=== PATIENT | male | born 1980 | race Hispanic/Latino ===

== ENCOUNTER 2019-09-17 00:23 | Inpatient (IN) | payer OTHER ==
[~2019-09-17] VITALS: Ht 172.7 cm; Wt 97.8 kg
[2019-09-17 01:18] LABS: BASOPHILS % (AUTO) 0.1 % (0.0-5.0); EOSINOPHILS % (AUTO) 1.7 % (0.0-8.0); LYMPHOCYTES % (AUTO) 12.3 % (21.0-51.0); MEAN CORPUSCULAR HEMOGLOBIN 29.2 pg (27.0-33.0); MEAN CORPUSCULAR HGB CONC 34.8 g/dL (32.0-36.0); MONOCYTES % (AUTO) 6.9 % (3.0-13.0); NEUTROPHILS % (AUTO) 78.6 % (40.0-77.0); PLATELET COUNT (AUTO) 209 K/uL (130-400); RED BLOOD CELL COUNT(AUTO) 5.24 MIL/uL (4.50-6.20); RED CELL DISTRIBUTION WIDTH 12.4 % (11.0-15.5); WHITE BLOOD COUNT (AUTO) 7.1 K/uL (4.8-10.8)
[2019-09-17 01:22] LABS: INR 0.9 (0.85-1.15); PARTIAL THROMBOPLASTIN TIME 32.4 SEC (26.3-35.5); PROTHROMBIN TIME 9.8 SEC (9.6-11.6)
[2019-09-17 01:27] LABS: CREATININE 0.9 mg/dL (0.5-1.5); POTASSIUM 3.6 mmol/L (3.5-5.1)
[2019-09-17 01:32] LABS: ALBUMIN 2.9 g/dL (3.5-5.0); BILIRUBIN,TOTAL 0.6 mg/dL (0.2-1.0); TOTAL PROTEIN, SERUM 7.2 g/dL (6.0-8.3)
[2019-09-17 01:39] LABS: B-TYPE NATRIURETIC PEPTIDE 6 pg/mL (0-100)
[2019-09-17] MEDS ORDERED: SODIUM CHLORIDE 0.9% 1000ML 1,000 ML, SODIUM CHLORIDE 0.9% 1000ML 1,000 ML IV SCH (02:18)
[2019-09-17] MEDS ORDERED: MAG HYDROX/AL HYDROX/SIMETH 30 ML, LIDOCAINE HCL 2% VISCOUS 30 ML, DIPHENHYDRAMINE HCL ... PO PRN ×3 (02:30)
[2019-09-17] MEDS ORDERED: MAG HYDROX/AL HYDROX/SIMETH ES 30 ML SUSP UDCUP PO PRN (02:30)
[2019-09-17] MEDS ORDERED: LACTULOSE 20 GM/30 ML UDCUP PO PRN (02:30)
[2019-09-17] MEDS ORDERED: NITROGLYCERIN 0.4 MG SL TAB SL PRN (02:30)
[2019-09-17] MEDS ORDERED: LIDOCAINE HCL 2% VISCOUS 30 ML, MAG HYDROX/AL HYDROX/SIMETH 30 ML, BELLADONNA-PHENOBARB... PO PRN ×3 (02:30)
[2019-09-17] MEDS ORDERED: DiphenhydrAMINE HCL 50 MG/ML VIAL IV PRN (02:30)
[2019-09-17] MEDS ORDERED: ONDANSETRON HCL 4 MG/2 ML VIAL IV PRN (02:30)
[2019-09-17] MEDS ORDERED: ACETAMINOPHEN 325 MG TAB PO PRN (02:30)
[2019-09-17] MEDS ORDERED: ZOLPIDEM TARTRATE 5 MG TAB ONE (02:43)
[2019-09-17] MEDS ORDERED: BENZONATATE 100 MG CAPSULE PO ONE (02:43)
[2019-09-17] MEDS ORDERED: PHARMACY COMMUNICATION**REMDESIVIR ORDER MISC SCH (02:45)
[2019-09-17] MEDS ORDERED: IOHEXOL-350 75 ML VIAL IV ONE (03:14)
[2019-09-17] MEDS ORDERED: GLUCAGON 1MG KIT 1 MG ML IM PRN (03:15)
[2019-09-17] MEDS ORDERED: DEXTROSE 50%-WATER 50 ML DISP.SYRIN IV PRN (03:15)
[2019-09-17 03:33] LABS: HEMOGLOBIN A1C 7.8 % (4.0-6.0)
[2019-09-17 03:43] LABS: CREATINE KINASE, TOTAL 111 U/L (21-232); MYOGLOBIN 40 ng/mL (10-92); TROPONIN I < 0.04 ng/mL (0.00-0.06)
[2019-09-17 04:10] VITALS: BP 142/83
[2019-09-17] MEDS ORDERED: METF-446 PO (05:55)
[2019-09-17] MEDS ORDERED: LISI1TAB51 PO (05:55)
[2019-09-17] MEDS ORDERED: GLIP5POW MC (05:55)
[2019-09-17] MEDS: AZITHROMYCIN 500MG+NS 250ML 250 ML IV SCH (06:45)
[2019-09-17] MEDS: CEFTRIAXONE SODIUM 1 GM IVP SCH ×2 (06:55→09:39)
[2019-09-17] MEDS: INSULIN LISPRO 100 UNIT/ML 3ML SQ SCH ×4 (07:30→20:19)
[2019-09-17 09:13] VITALS: BP 130/82
[2019-09-17] MEDS ORDERED: SODIUM CHLORIDE 0.9% 1000ML 1,000 ML IV ONE (09:20)
[2019-09-17] MEDS: FAMOTIDINE/PF 20 MG/2 ML VIAL IV SCH ×2 (09:35→20:19)
[2019-09-17] MEDS: ENOXAPARIN SODIUM 40 MG/0.4 ML SYRINGE SQ SCH (09:36)
[2019-09-17] MEDS: DEXAMETHASONE 10MG/ML 1ML VIAL 6 MG in SODIUM CHLORIDE 0.9% 50 ML IV SCH (09:38)
[2019-09-17] MEDS ORDERED: SODIUM CHLORIDE 0.9% 250 ML IV ONE (10:27)
[2019-09-17 11:39] LABS: CREATINE KINASE, TOTAL 129 U/L (21-232); MYOGLOBIN 52 ng/mL (10-92); TROPONIN I < 0.04 ng/mL (0.00-0.06)
[2019-09-17 12:50] VITALS: BP 133/83
--- NOTE | 2019-09-17 13:49 | NUR ---
DC PLAN VISITED WITH PATIENT. SPOKE THROUGH PHONE. PATIENT LIVES WITH SPOUSE. INDEPENDENT ABLE TO PERFORM ADL'S. PATIENT HAS NO SERVICES OR DME'S. FEELS SAFE TO RETURN HOME. PATIENT VERBAL ALDEN GIVEN IN CASE HE NEEDS O2. NURSE COSIGNED FORM. Addendum: 09/17/19 at 1351 by YAHAIRA ALANIS RN CM Amended: Links added.
[2019-09-17 15:51] VITALS: BP 128/81
[2019-09-17 18:31] LABS: CREATINE KINASE, TOTAL 132 U/L (21-232); MYOGLOBIN 43 ng/mL (10-92); TROPONIN I < 0.04 ng/mL (0.00-0.06)
[2019-09-17] MEDS: PHARMACY COMMUNICATION**REMDESIVIR ORDER MISC SCH ×2 (19:00→19:15)
[2019-09-17 20:24] VITALS: BP 133/82
--- NOTE | 2019-09-17 20:30 | NUR ---
PT EDUCATION ENCOURAGED PATIENT TO PRONE AND LAY SIDE TO SIDE. PATIENT STATES HE ATTEMPTED PRONE AND UNABLE TO TOLERATE. ENCOURAGED PATIENT TO CONTINUE TO ATTEMPT TO PRONE. OFFERED PRN COUGH MEDICATION.
[2019-09-17] MEDS: BENZONATATE 100 MG CAPSULE PO PRN (20:31)
[2019-09-17] MEDS: PHENOL 177 ML BOTTLE PO PRN (23:49)
[2019-09-18 00:15] VITALS: BP 127/79
[2019-09-18] MEDS: PHARMACY COMMUNICATION**REMDESIVIR ORDER MISC SCH ×3 (02:32→18:17)
[2019-09-18 04:04] VITALS: BP 121/83
[2019-09-18] MEDS: AZITHROMYCIN 500MG+NS 250ML 250 ML IV SCH (04:16)
[2019-09-18] MEDS: GUAIFENESIN-CODEINE 5 ML SYRUP PO PRN ×3 (05:28→16:40)
[2019-09-18] MEDS: INSULIN LISPRO 100 UNIT/ML 3ML SQ SCH ×4 (05:34→21:42)
[2019-09-18 05:57] LABS: BASOPHILS % (AUTO) 0.1 % (0.0-5.0); HEMATOCRIT 39.1 % (42-54); LYMPHOCYTES % (AUTO) 7.2 % (21.0-51.0); MEAN CORPUSCULAR HEMOGLOBIN 29.1 pg (27.0-33.0); MEAN CORPUSCULAR HGB CONC 34.3 g/dL (32.0-36.0); MONOCYTES % (AUTO) 6.4 % (3.0-13.0); NEUTROPHILS % (AUTO) 85.8 % (40.0-77.0); PLATELET COUNT (AUTO) 241 K/uL (130-400); RED CELL DISTRIBUTION WIDTH 12.3 % (11.0-15.5); WHITE BLOOD COUNT (AUTO) 10.4 K/uL (4.8-10.8)
[2019-09-18] MEDS: DEXAMETHASONE 10MG/ML 1ML VIAL 6 MG in SODIUM CHLORIDE 0.9% 50 ML IV SCH (06:12)
[2019-09-18 06:41] LABS: ALBUMIN 2.5 g/dL (3.5-5.0); BILIRUBIN,TOTAL 0.8 mg/dL (0.2-1.0); CREATININE 0.9 mg/dL (0.5-1.5); CRP QUANTITATIVE 160.6 mg/L (0.00-9.0); MAGNESIUM 1.7 mg/dL (1.80-2.40); PHOSPHORUS 3.5 mg/dL (2.5-4.9); POTASSIUM 3.6 mmol/L (3.5-5.1); TOTAL PROTEIN, SERUM 6.4 g/dL (6.0-8.3)
[2019-09-18] MEDS ORDERED: MAGNESIUM 2GM PREMIX 50ML 50 ML IV SCH (07:00)
[2019-09-18] MEDS: CEFTRIAXONE SODIUM 1 GM IVP SCH (08:51)
[2019-09-18] MEDS: FAMOTIDINE 20MG TAB 20 MG TAB PO SCH ×2 (08:51→20:22)
[2019-09-18] MEDS: ENOXAPARIN SODIUM 40 MG/0.4 ML SYRINGE SQ SCH (08:51)
[2019-09-18 08:56] VITALS: BP 132/83
[2019-09-18] MEDS ORDERED: PHARMACY COMMUNICATION**REMDESIVIR ORDER MISC SCH (11:15)
[2019-09-18] MEDS ORDERED: DEXAMETHASONE 4 MG TAB PO SCH (11:30)
[2019-09-18 12:44] VITALS: BP 118/79
[2019-09-18 15:53] VITALS: BP 120/73
[2019-09-18 20:00] VITALS: BP 132/84
[2019-09-18] MEDS: ZOLPIDEM TARTRATE 5 MG TAB PO PRN (20:22)
[2019-09-18] MEDS: BENZONATATE 100 MG CAPSULE PO PRN (20:22)
[2019-09-18] MEDS: PHENOL 177 ML BOTTLE PO PRN (20:22)
[2019-09-18] MEDS: ACETAMINOPHEN 325 MG TAB PO PRN ×2 (20:22→21:42)
--- NOTE | 2019-09-18 23:54 | NUR ---
PT STATUS PT FOUND WITH NC OFF AND DESATURATING. PATIENT PLACED ON VENTI MASK AT 40%; OXYGEN SATURATION 90%. WILL CONTINUE TO MONITOR.
[2019-09-19] VITALS: BP 129/85
[2019-09-19] MEDS: PHARMACY COMMUNICATION**REMDESIVIR ORDER MISC SCH ×3 (02:37→19:10)
[2019-09-19] MEDS: AZITHROMYCIN 500MG+NS 250ML 250 ML IV SCH (02:37)
[2019-09-19 03:55] LABS: BASOPHILS % (AUTO) 0.3 % (0.0-5.0); HEMATOCRIT 40.5 % (42-54); MEAN CORPUSCULAR HEMOGLOBIN 28.4 pg (27.0-33.0); MEAN CORPUSCULAR HGB CONC 33.3 g/dL (32.0-36.0); MEAN CORPUSCULAR VOLUME 85.3 fL (79-99); MONOCYTES % (AUTO) 6.4 % (3.0-13.0); NEUTROPHILS % (AUTO) 82.4 % (40.0-77.0); PLATELET COUNT (AUTO) 275 K/uL (130-400); RED BLOOD CELL COUNT(AUTO) 4.75 MIL/uL (4.50-6.20); RED CELL DISTRIBUTION WIDTH 12.2 % (11.0-15.5); WHITE BLOOD COUNT (AUTO) 10.8 K/uL (4.8-10.8)
[2019-09-19 04:00] VITALS: BP 137/90
[2019-09-19 04:13] LABS: ALBUMIN 2.4 g/dL (3.5-5.0); BILIRUBIN,TOTAL 1.3 mg/dL (0.2-1.0); CREATININE 0.9 mg/dL (0.5-1.5); CRP QUANTITATIVE 153.4 mg/L (0.00-9.0); POTASSIUM 3.7 mmol/L (3.5-5.1); TOTAL PROTEIN, SERUM 6.6 g/dL (6.0-8.3)
[2019-09-19] MEDS: ACETAMINOPHEN 325 MG TAB PO PRN (04:35)
[2019-09-19] MEDS: INSULIN LISPRO 100 UNIT/ML 3ML SQ SCH ×4 (05:45→21:26)
--- NOTE | 2019-09-19 08:00 | NUR ---
ASSESSMENT ENCOUNTERED PT A&OX3, SITTING ON SIDE OF BED, APPEARS TACHYPNEIC, O2SATS 85% ON VENTI MASK, PLACED ON 100%NRB WITH 12LNC, O2 SATS 100%, PT IS ABLE TO TOLERATE FOODS, FLUIDS AND MEDICATION WITH NO THROAT CLEARING OR COUGH, INFORMED PT TO REMAIN AT BEDREST AND THE BENEFITS OF PRONE POSITIONING, PT AND ON PHONE BOTH UNDERSTOOD AND PROCEEDED TO PRONE POSITION, APPEARS COMFORTABLE, SPEAKING TO ON CELL PHONE.
[2019-09-19] MEDS: DEXAMETHASONE 4 MG TAB PO SCH (08:44)
[2019-09-19] MEDS: CEFTRIAXONE SODIUM 1 GM IVP SCH (08:44)
[2019-09-19] MEDS: FAMOTIDINE 20MG TAB 20 MG TAB PO SCH ×2 (08:44→21:26)
[2019-09-19] MEDS: GUAIFENESIN-CODEINE 5 ML SYRUP PO PRN ×3 (08:44→22:47)
[2019-09-19] MEDS: BENZONATATE 100 MG CAPSULE PO PRN ×2 (08:44→17:13)
[2019-09-19] MEDS: ENOXAPARIN SODIUM 40 MG/0.4 ML SYRINGE SQ SCH (08:50)
[2019-09-19 09:47] VITALS: BP 138/86
--- NOTE | 2019-09-19 11:00 | NUR ---
DECREASED TO 6LNC WITH 100% NRB, PT STATES THAT HE FEELS ALOT BETTER DURING AND AFTER PRONING, ENCOURAGED HIM TO PRONE BETWEEN MEALS AND MAJORITY OF PRONING AT HS.
[2019-09-19 11:06] LABS: ABG BASE EXCESS 2.6 mmol/L (-2.0-3.0); ABG HCO3 26.2 mmol/L (21.0-28.0); ABG OXYGEN SATURATION 99.7 % (95.0-99.0); ABG PCO2 37 mmHg (35-48)
[2019-09-19 12:45] VITALS: BP 143/93
[2019-09-19] MEDS: PHARMACY COMMUNICATION MISC SCH ×3 (14:00→22:00)
[2019-09-19 16:00] VITALS: BP 157/89
[2019-09-19 20:00] VITALS: BP 136/85
--- NOTE | 2019-09-19 20:59 | NUR ---
[facility] RECEIVED CALL FROM LAB MELISSA STATING [facility] READY FOR TRANSFUSION AND THEY NEED COPY OF PT REGISTRATION WITH [facility] PER MELISSA "AUDRA" TOLD HIM IT WAS OK TO THAW PLASMA. RECEIVED REPORT FROM DAY SHIFT NURSE THAT PT WAS PENDING REGISTRATION FOR PLASMA. HARD CHART CHECKED NO HARD COPY OF REGISTRATION LOCATED. PLASMA WILL BE ON HOLD UNTIL ADMINISTRATION IS HERE IN THE MORNING AND ABLE TO PRINT OUT HARD COPY OF REGISTRATION FOR LAB REQUIREMENTS. Addendum: 09/20/19 at 0416 by ADITYA LIRA RN RN DISREGARD PREVIOUS NOTE, NO HARD COPY REQUIRED, PROVIDED AUTHORIZATION NUMBER FROM [facility] STUDY AND PT RECEIVED ONE UNIT [facility] WITHOUT INCIDENT.
[2019-09-19] MEDS: ZOLPIDEM TARTRATE 5 MG TAB PO PRN (21:26)
[2019-09-20] VITALS (7 sets, daily range): BP systolic 115–141; BP diastolic 70–100
[2019-09-20] MEDS ORDERED: SODIUM CHLORIDE 0.9% 250 ML IV ONE (01:00)
[2019-09-20] MEDS: PHARMACY COMMUNICATION MISC SCH ×6 (01:15→20:47)
[2019-09-20] MEDS: PHARMACY COMMUNICATION**REMDESIVIR ORDER MISC SCH ×3 (03:15→19:15)
[2019-09-20 04:37] LABS: ABG BASE EXCESS 0.5 mmol/L (-2.0-3.0); ABG HCO3 25.2 mmol/L (21.0-28.0); ABG OXYGEN SATURATION 99.7 % (95.0-99.0); ABG PCO2 41 mmHg (35-48)
[2019-09-20 04:44] LABS: BASOPHILS % (AUTO) 0.5 % (0.0-5.0); EOSINOPHILS % (AUTO) 0.1 % (0.0-8.0); HEMATOCRIT 39.6 % (42-54); LYMPHOCYTES % (AUTO) 10.6 % (21.0-51.0); MEAN CORPUSCULAR HEMOGLOBIN 28.8 pg (27.0-33.0); MEAN CORPUSCULAR HGB CONC 33.8 g/dL (32.0-36.0); MEAN CORPUSCULAR VOLUME 85.2 fL (79-99); MONOCYTES % (AUTO) 6.3 % (3.0-13.0); NEUTROPHILS % (AUTO) 77.7 % (40.0-77.0); PLATELET COUNT (AUTO) 328 K/uL (130-400); RED BLOOD CELL COUNT(AUTO) 4.65 MIL/uL (4.50-6.20); RED CELL DISTRIBUTION WIDTH 11.9 % (11.0-15.5); WHITE BLOOD COUNT (AUTO) 8.8 K/uL (4.8-10.8)
[2019-09-20 05:16] LABS: ALBUMIN 2.4 g/dL (3.5-5.0); BILIRUBIN,TOTAL 1.4 mg/dL (0.2-1.0); CREATININE 0.9 mg/dL (0.5-1.5); POTASSIUM 4.3 mmol/L (3.5-5.1); TOTAL PROTEIN, SERUM 6.6 g/dL (6.0-8.3)
[2019-09-20] MEDS: GUAIFENESIN-DM 200/20 MG 10 ML PO PRN (06:08)
[2019-09-20] MEDS: INSULIN LISPRO 100 UNIT/ML 3ML SQ SCH ×6 (06:11→20:58)
[2019-09-20] MEDS: DEXAMETHASONE 4 MG TAB PO SCH (09:39)
[2019-09-20] MEDS: CEFTRIAXONE SODIUM 1 GM IVP SCH (09:39)
[2019-09-20] MEDS: FAMOTIDINE 20MG TAB 20 MG TAB PO SCH ×2 (09:39→20:55)
[2019-09-20] MEDS: ENOXAPARIN SODIUM 40 MG/0.4 ML SYRINGE SQ SCH ×3 (09:41→20:55)
[2019-09-20] MEDS: GUAIFENESIN-CODEINE 5 ML SYRUP PO PRN ×3 (09:50→21:04)
[2019-09-20] MEDS: ACETAMINOPHEN 325 MG TAB PO PRN (09:51)
[2019-09-20] MEDS: METHYLPREDNISOLONE SOD SUCC 40MG/ML 1ML IVP SCH ×2 (12:58→17:23)
[2019-09-20] MEDS: INSULIN GLARGINE 100 UNITS/ML 10 ML VIAL SQ SCH (20:59)
[2019-09-20] MEDS: ZOLPIDEM TARTRATE 5 MG TAB PO PRN (21:04)
[2019-09-21] MEDS: PHARMACY COMMUNICATION MISC SCH ×6 (02:00→21:02)
[2019-09-21] MEDS: PHARMACY COMMUNICATION**REMDESIVIR ORDER MISC SCH ×3 (02:09→16:30)
[2019-09-21] MEDS: METHYLPREDNISOLONE SOD SUCC 40MG/ML 1ML IVP SCH ×3 (02:09→16:29)
[2019-09-21 03:00] VITALS: BP 136/85
[2019-09-21 03:19] LABS: ABG BASE EXCESS 1.2 mmol/L (-2.0-3.0); ABG HCO3 25.2 mmol/L (21.0-28.0); ABG OXYGEN SATURATION 90.8 % (95.0-99.0); ABG PCO2 38 mmHg (35-48)
[2019-09-21 04:11] LABS: BASOPHILS % (AUTO) 0.5 % (0.0-5.0); HEMATOCRIT 42.3 % (42-54); LYMPHOCYTES % (AUTO) 8.1 % (21.0-51.0); MEAN CORPUSCULAR HEMOGLOBIN 28.7 pg (27.0-33.0); MEAN CORPUSCULAR VOLUME 84.3 fL (79-99); MONOCYTES % (AUTO) 4.7 % (3.0-13.0); NEUTROPHILS % (AUTO) 80.2 % (40.0-77.0); PLATELET COUNT (AUTO) 389 K/uL (130-400); RED BLOOD CELL COUNT(AUTO) 5.02 MIL/uL (4.50-6.20); RED CELL DISTRIBUTION WIDTH 11.8 % (11.0-15.5); WHITE BLOOD COUNT (AUTO) 8.6 K/uL (4.8-10.8)
[2019-09-21 04:28] LABS: ALBUMIN 2.4 g/dL (3.5-5.0); BILIRUBIN,TOTAL 0.9 mg/dL (0.2-1.0); CREATININE 0.8 mg/dL (0.5-1.5); PHOSPHORUS 4.6 mg/dL (2.5-4.9); POTASSIUM 4.3 mmol/L (3.5-5.1); TOTAL PROTEIN, SERUM 6.7 g/dL (6.0-8.3)
[2019-09-21] MEDS: INSULIN LISPRO 100 UNIT/ML 3ML SQ SCH ×7 (07:23→21:07)
[2019-09-21] MEDS: GUAIFENESIN-DM 200/20 MG 10 ML PO PRN ×2 (07:31→21:00)
[2019-09-21 08:00] VITALS: BP 129/82
[2019-09-21] MEDS: FAMOTIDINE 20MG TAB 20 MG TAB PO SCH ×2 (09:04→21:00)
[2019-09-21] MEDS: ENOXAPARIN SODIUM 40 MG/0.4 ML SYRINGE SQ SCH ×2 (09:05→21:01)
[2019-09-21] MEDS: GUAIFENESIN-CODEINE 5 ML SYRUP PO PRN (09:06)
[2019-09-21 12:08] VITALS: BP 121/92
[2019-09-21 16:00] VITALS: BP 137/65
[2019-09-21] MEDS ORDERED: COMPOUND IV REFRIGERATED 1 EACH IVSOLN MISC PRN (20:00)
[2019-09-21] MEDS ORDERED: REMDESIVIR (EUA) 520 200 MG in SODIUM CHLORIDE 0.9% 250 ML IV ONE (20:00)
[2019-09-21 20:43] VITALS: BP 122/74
[2019-09-21] MEDS ORDERED: SODIUM CHLORIDE 0.9% 500ML 500 ML IV ONE (20:49)
[2019-09-21] MEDS: ZOLPIDEM TARTRATE 5 MG TAB PO PRN (21:00)
[2019-09-21] MEDS: INSULIN GLARGINE 100 UNITS/ML 10 ML VIAL SQ SCH (21:08)
[2019-09-22] VITALS (7 sets, daily range): BP systolic 114–142; BP diastolic 73–94
--- NOTE | 2019-09-22 | NUR ---
pt completed Remdesevir administration; no issues or complaints at this time; vitals remained stable an WNL. JESS Rosado
[2019-09-22] MEDS: PHARMACY COMMUNICATION MISC SCH ×6 (02:00→17:19)
[2019-09-22] MEDS: METHYLPREDNISOLONE SOD SUCC 40MG/ML 1ML IVP SCH ×3 (02:43→16:22)
[2019-09-22] MEDS: PHARMACY COMMUNICATION**REMDESIVIR ORDER MISC SCH ×3 (02:44→17:19)
[2019-09-22] MEDS: GUAIFENESIN-DM 200/20 MG 10 ML PO PRN (04:01)
[2019-09-22] MEDS: ACETAMINOPHEN 325 MG TAB PO PRN (04:05)
[2019-09-22 04:43] LABS: BASOPHILS % (AUTO) 0.7 % (0.0-5.0); EOSINOPHILS % (AUTO) 0.2 % (0.0-8.0); HEMATOCRIT 41.9 % (42-54); MEAN CORPUSCULAR HEMOGLOBIN 29.2 pg (27.0-33.0); MEAN CORPUSCULAR HGB CONC 34.6 g/dL (32.0-36.0); MEAN CORPUSCULAR VOLUME 84.5 fL (79-99); MONOCYTES % (AUTO) 6.1 % (3.0-13.0); NEUTROPHILS % (AUTO) 82.2 % (40.0-77.0); PLATELET COUNT (AUTO) 372 K/uL (130-400); RED BLOOD CELL COUNT(AUTO) 4.96 MIL/uL (4.50-6.20); RED CELL DISTRIBUTION WIDTH 11.8 % (11.0-15.5); WHITE BLOOD COUNT (AUTO) 13.7 K/uL (4.8-10.8)
[2019-09-22 05:01] LABS: CREATININE 0.9 mg/dL (0.5-1.5); CRP QUANTITATIVE 15.7 mg/L (0.00-9.0); POTASSIUM 3.9 mmol/L (3.5-5.1)
[2019-09-22] MEDS: INSULIN LISPRO 100 UNIT/ML 3ML SQ SCH ×7 (06:34→20:56)
[2019-09-22] MEDS: FAMOTIDINE 20MG TAB 20 MG TAB PO SCH ×2 (09:40→20:51)
[2019-09-22] MEDS: ENOXAPARIN SODIUM 40 MG/0.4 ML SYRINGE SQ SCH ×2 (09:40→20:51)
[2019-09-22] MEDS: GUAIFENESIN-CODEINE 5 ML SYRUP PO PRN (18:12)
[2019-09-22] MEDS: REMDESIVIR (EUA) 520 100 MG in SODIUM CHLORIDE 0.9% 250 ML IV SCH (20:51)
[2019-09-22] MEDS: INSULIN GLARGINE 100 UNITS/ML 10 ML VIAL SQ SCH (21:02)
[2019-09-23] MEDS: METHYLPREDNISOLONE SOD SUCC 40MG/ML 1ML IVP SCH ×3 (02:51→16:20)
[2019-09-23 04:27] VITALS: BP 115/65
[2019-09-23 05:34] LABS: BASOPHILS % (AUTO) 0.4 % (0.0-5.0); EOSINOPHILS % (AUTO) 0.2 % (0.0-8.0); HEMATOCRIT 40.5 % (42-54); LYMPHOCYTES % (AUTO) 7.3 % (21.0-51.0); MEAN CORPUSCULAR HEMOGLOBIN 28.7 pg (27.0-33.0); MEAN CORPUSCULAR HGB CONC 34.3 g/dL (32.0-36.0); MEAN CORPUSCULAR VOLUME 83.5 fL (79-99); MONOCYTES % (AUTO) 6.1 % (3.0-13.0); NEUTROPHILS % (AUTO) 80.7 % (40.0-77.0); PLATELET COUNT (AUTO) 398 K/uL (130-400); RED BLOOD CELL COUNT(AUTO) 4.85 MIL/uL (4.50-6.20); RED CELL DISTRIBUTION WIDTH 11.8 % (11.0-15.5)
[2019-09-23 05:59] LABS: CREATININE 0.8 mg/dL (0.5-1.5); CRP QUANTITATIVE 13.8 mg/L (0.00-9.0); POTASSIUM 4.4 mmol/L (3.5-5.1)
[2019-09-23] MEDS: PHARMACY COMMUNICATION MISC SCH ×5 (06:00→22:00)
[2019-09-23] MEDS: INSULIN LISPRO 100 UNIT/ML 3ML SQ SCH ×7 (06:32→21:03)
[2019-09-23 08:04] VITALS: BP 122/74
[2019-09-23] MEDS: ENOXAPARIN SODIUM 40 MG/0.4 ML SYRINGE SQ SCH ×2 (09:41→21:01)
[2019-09-23] MEDS: FAMOTIDINE 20MG TAB 20 MG TAB PO SCH ×2 (09:41→20:03)
[2019-09-23] MEDS: GUAIFENESIN-CODEINE 5 ML SYRUP PO PRN (09:41)
[2019-09-23] MEDS: PHARMACY COMMUNICATION**REMDESIVIR ORDER MISC SCH ×2 (11:00→16:26)
[2019-09-23 11:13] VITALS: BP 123/75
[2019-09-23 15:57] VITALS: BP 120/91
[2019-09-23 19:54] VITALS: BP 116/76
[2019-09-23] MEDS: REMDESIVIR (EUA) 520 100 MG in SODIUM CHLORIDE 0.9% 250 ML IV SCH (20:02)
[2019-09-23] MEDS: DIPHENHYDRAMINE HCL 25 MG CAPSULE PO PRN (21:01)
[2019-09-23] MEDS: GUAIFENESIN-DM 200/20 MG 10 ML PO PRN (21:01)
[2019-09-23] MEDS: INSULIN GLARGINE 100 UNITS/ML 10 ML VIAL SQ SCH (21:04)
[2019-09-23 23:31] VITALS: BP 120/73
[2019-09-24] MEDS: PHARMACY COMMUNICATION MISC SCH ×6 (02:00→18:00)
[2019-09-24] MEDS: METHYLPREDNISOLONE SOD SUCC 40MG/ML 1ML IVP SCH ×4 (02:02→21:03)
[2019-09-24 03:59] VITALS: BP 126/69
--- NOTE | 2019-09-24 04:36 | NUR ---
Patient had a restful night. No acute respiratory distress this shift. He continued on 50% Fi02 with flow rate of 15%, POX between 98-100%. Following POC. Will continue to monitor.
[2019-09-24 05:06] LABS: BASOPHILS % (AUTO) 0.5 % (0.0-5.0); EOSINOPHILS % (AUTO) 0.1 % (0.0-8.0); HEMATOCRIT 41.9 % (42-54); LYMPHOCYTES % (AUTO) 7.7 % (21.0-51.0); MEAN CORPUSCULAR HEMOGLOBIN 29.3 pg (27.0-33.0); MEAN CORPUSCULAR HGB CONC 34.6 g/dL (32.0-36.0); MEAN CORPUSCULAR VOLUME 84.6 fL (79-99); MONOCYTES % (AUTO) 7.4 % (3.0-13.0); NEUTROPHILS % (AUTO) 77.8 % (40.0-77.0); PLATELET COUNT (AUTO) 407 K/uL (130-400); RED BLOOD CELL COUNT(AUTO) 4.95 MIL/uL (4.50-6.20); RED CELL DISTRIBUTION WIDTH 11.8 % (11.0-15.5); WHITE BLOOD COUNT (AUTO) 12.9 K/uL (4.8-10.8)
[2019-09-24 05:08] LABS: CREATININE 0.9 mg/dL (0.5-1.5); CRP QUANTITATIVE 4.5 mg/L (0.00-9.0); POTASSIUM 4.5 mmol/L (3.5-5.1)
[2019-09-24] MEDS: INSULIN LISPRO 100 UNIT/ML 3ML SQ SCH ×6 (06:23→21:02)
[2019-09-24 08:00] VITALS: BP 102/66
--- NOTE | 2019-09-24 08:00 | NUR ---
ASSESSMENT ENCOUNTERED PT A&OX3, O2SATS 99% ON VENTI MASK, WEANING TRIAL TO 6LNC INITIATED, PT IS CALM COOPERATIVE AND DOES NOT APPEAR TO BE IN ANY DISTRESS NOR ANY NEURO DEFICITS PRESENT. PT DENIES PAIN, SOB, NAUSEA. O2SATS 97% ON 6LNC, PT IS AMBULATORY TO BATHROOM AND BACK TO BED, GAIT STEADY AND STRONG WITH STAND BY ASSIST AND O2 EXTENSION TUBING, DENIES DYSPNEA ON EXERTION, DIZZINESS AND LIGHTHEADEDNESS. INFORMED PT THAT WILL RE-EVALUATE AFTER LUNCH TO FURTHER WEAN O2 TO 4LNC. ON FACE TIME ON PATIENT'S PHONE AND WAS ALSO EXPLAINED ABOUT PLAN FOR THE DAY. CALL LIGHT WITHIN REACH.
[2019-09-24] MEDS: FAMOTIDINE 20MG TAB 20 MG TAB PO SCH ×2 (09:44→21:09)
[2019-09-24] MEDS: ENOXAPARIN SODIUM 40 MG/0.4 ML SYRINGE SQ SCH ×2 (09:45→21:02)
[2019-09-24 12:00] VITALS: BP 124/90
--- NOTE | 2019-09-24 12:30 | NUR ---
ANGELES NOVAK E LEARNING MANAGER AT BEDSIDE UPDATE GIVEN, ORDERS RECEIVED, PT DECREASED TO 4LNC, O2SATS 95% AND DOES NOT APPEAR TO BE IN ANY DISTRESS. CALL LIGHT WITHIN REACH.
[2019-09-24] MEDS ORDERED: SODIUM CHLORIDE 0.9% 250 ML IV ONE (13:41)
[2019-09-24] MEDS: REMDESIVIR (EUA) 520 100 MG in SODIUM CHLORIDE 0.9% 250 ML IV SCH (13:59)
--- NOTE | 2019-09-24 15:00 | NUR ---
PT SHOWER ON 4LNC WITH EXTENSION TUBING, PT DENIES PAIN, DIZZINESS, SOB, DYSPNEA ON EXERTION. TOLERATED WELL, RESTING COMFORTABLY IN CHAIR, CALL LIGHT WITHIN REACH.
[2019-09-24 16:00] VITALS: BP 107/71
[2019-09-24 19:35] VITALS: BP 118/71
[2019-09-24] MEDS: INSULIN GLARGINE 100 UNITS/ML 10 ML VIAL SQ SCH ×2 (20:59→21:09)
[2019-09-24] MEDS ORDERED: INSULIN GLARGINE 100 UNITS/ML 10 ML VIAL SQ SCH (21:00)
[2019-09-24] MEDS: DIPHENHYDRAMINE HCL 25 MG CAPSULE PO PRN (21:24)
[2019-09-24] MEDS: GUAIFENESIN-DM 200/20 MG 10 ML PO PRN (21:24)
[2019-09-24 23:11] VITALS: BP 100/48
[2019-09-25 03:21] VITALS: BP 106/66
[2019-09-25 05:38] LABS: CRP QUANTITATIVE 4.3 mg/L (0.00-9.0)
--- NOTE | 2019-09-25 05:39 | NUR ---
Patient continue on 4L NC with pox of 99-100%. BRP with extended NC tubing. No new variance this shift.
--- NOTE | 2019-09-25 07:00 | NUR ---
ASSUMED CARE OF PATIENT REPORT RECEIVED FROM TERRAZZO WORKER RN. RESTING QUIETLY VSS. O2 @4LNC WAS TITRATED DOWN TO 3LNC. TOLERATING WELL.
[2019-09-25] MEDS: INSULIN LISPRO 100 UNIT/ML 3ML SQ SCH ×5 (07:30→16:28)
[2019-09-25 08:00] VITALS: BP 116/85
--- NOTE | 2019-09-25 08:00 | NUR ---
ASSESSMENT COMPLETED SEE INTERVENTION FLOWCHART. VSS. AOX4 NO COMPLAINTS AT THIS TIME.
[2019-09-25] MEDS ORDERED: APIXABAN 2.5 MG TABLET PO SCH (09:00)
[2019-09-25] MEDS: FAMOTIDINE 20MG TAB 20 MG TAB PO SCH (09:58)
[2019-09-25] MEDS: METHYLPREDNISOLONE SOD SUCC 40MG/ML 1ML IVP SCH (09:58)
[2019-09-25] MEDS ORDERED: REMDESIVIR (EUA) 520 100 MG in SODIUM CHLORIDE 0.9% 250 ML IV SCH (10:00)
--- NOTE | 2019-09-25 10:13 | NUR ---
RESPIRATORY IN ROOM TO ASSESS FOR HOME O2 NEEDS. UP TO CHAIR, W/ 022LNC NEEDED TO MAINTAIN SATS >90%. PULMONOLOGY IN TO SEE PATIENT, STATED WILL BE SIGNING OFF. PLANNING FOR D/C HOPEFULLY TODAY.
[2019-09-25 11:10] VITALS: BP 109/72
--- NOTE | 2019-09-25 12:00 | NUR ---
DC PLAN ORDER RECEIVED FOR . LET RESPIRATORY KNOW. ALDEN SIGNED ON ADMISSION FOR OXYGEN. OXYGEN CONCENTRATOR AND O2 TANK DELIVERED TO POD A WITH FORM READY TO SIGN. LET NURSE KNOW ABOUT PENDING SIGNATURE AND TO FAX TO 1200 ONCE SIGNED. PATIENT TO RETURN TANK PEDRO ONCE HOME. SO NEXT PATIENT CAN BE DISCHARGED. Addendum: 09/25/19 at 1202 by YAHAIRA ALANIS RN CM Amended: Links added.
[2019-09-25] MEDS ORDERED: APIX2.5T PO (16:36)
[2019-09-25] MEDS ORDERED: INSU3INS3 SQ (16:36)
[2019-09-25] MEDS ORDERED: DEXA6TAB PO (16:36)
--- NOTE | 2019-09-25 17:58 | NUR ---
DISCHARGE PATIENT D/C W/ D/C INSTRUCTIONS R/T COVID-19 (INSTRUCTIONS GIVEN) MEDICATIONS D/C EXPLAINED. D/C W/ OXYGEN CONCENTRATOR 022LNC. INSTRUCTIONS ON CONCENTRATOR USE, OXYGEN AND DIETARY INSTRUCTIONS EXPLAINED PER DIET AND ACTIVITIES. PATIENT DEMONSTRATED UNDERSTANDING OF ALL. D/C PER WHEELCHAIR AND O2 TO ED EXIT, PER PRIVATE VEHICLE
== END 2019-09-25 17:45 | disposition home or self-care (01) | DRG 871 ==
LOC: EDH 00:23 → EDHIP 02:18 → EEVIPCON 02:18 → 2AH 02:19
PROVIDERS: ADMIT Internal Medicine; ATTEND Internal Medicine
PROC: XW13325 Transfusion of Convalescent Plasma (Nonautologous) into Peripheral Vein, Percutaneous Approach, New Technology Group 5 (ICD-10-PCS; principal; 2019-09-17)
PROC: XW13325 Transfusion of Convalescent Plasma (Nonautologous) into Peripheral Vein, Percutaneous Approach, New Technology Group 5 (ICD-10-PCS; 2019-09-20)
PROC: XW033E5 Introduction of Remdesivir Anti-infective into Peripheral Vein, Percutaneous Approach, New Technology Group 5 (ICD-10-PCS; 2019-09-21)
PROC: XW033E5 Introduction of Remdesivir Anti-infective into Peripheral Vein, Percutaneous Approach, New Technology Group 5 (ICD-10-PCS; 2019-09-24)
PROC: XW033E5 Introduction of Remdesivir Anti-infective into Peripheral Vein, Percutaneous Approach, New Technology Group 5 (ICD-10-PCS; 2019-09-25)
DX: A41.89 Other specified sepsis (principal); U07.1 COVID-19; J12.89 Other viral pneumonia; E43 Unspecified severe protein-calorie malnutrition; J96.01 Acute respiratory failure with hypoxia; E87.1 Hypo-osmolality and hyponatremia; R65.20 Severe sepsis without septic shock; L40.9 Psoriasis, unspecified; I10 Essential (primary) hypertension; E66.9 Obesity, unspecified; E11.9 Type 2 diabetes mellitus without complications; E78.5 Hyperlipidemia, unspecified; E87.8 Other disorders of electrolyte and fluid balance, not elsewhere classified; Z68.34 Body mass index [BMI] 34.0-34.9, adult; Z79.01 Long term (current) use of anticoagulants; Z86.73 Personal history of transient ischemic attack (TIA), and cerebral infarction without residual deficits
CPT/HCPCS: 36415; 36430; 36600; 71045; 71275; 80048; 80053; 82550; 82728; 82803; 82948; 83036; 83605; 83615; 83735; 83874; 83880; 84100; 84145; 84484; 85025; 85378; 85610; 85730; 86140; 86850; 86900; 86901; 86927; 87040; 87426; 93005; 94760; G0378; J0456; J0696; J1100; J1650; J2405; J2920; J3475; J3490; J7030; J7040; J7050; J8540; Q0163; Q9967